=== PATIENT | female | born 1985 | race Caucasian/White ===

== ENCOUNTER 2016-08-08 19:50 | Emergency (ER) | payer SELFPAY ==
[~2016-08-08] VITALS: Ht 144.8 cm; Wt 59.0 kg
[~2016-08-08 19:50] MED LIST: VIC
[2016-08-08] MEDS ORDERED: ACETAMINOPHEN 500MG TABLET PO ONE (22:45)
[2016-08-08 23:15] VITALS: BP 120/76
== END 2016-08-08 23:16 | disposition home or self-care (01) ==
LOC: ER 22:43
DX: J06.9 Acute upper respiratory infection, unspecified (principal); M79.1 Myalgia
CPT/HCPCS: 99283